=== PATIENT | female | born 1985 | race Caucasian/White ===

== ENCOUNTER 2016-11-03 09:45 | Outpatient (CLI) | payer MEDICAID | END 2016-11-03 11:42 | disposition home or self-care (01) | LOC: MW.OBCHECK 09:45 → MW.OB 09:47 → MW.OBCHECK 11:42 | PROVIDERS: ATTEND Obstetrics & Gynecology | DX: O26.859 Spotting complicating pregnancy, unspecified trimester (principal); O62.9 Abnormality of forces of labor, unspecified | CPT/HCPCS: 59025; 81001; 84112 ==